=== PATIENT | male | born 1990 | race Caucasian/White ===

== ENCOUNTER 2018-03-19 22:10 | Emergency (ER) | payer BC ==
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
[2018-03-19] MEDS ORDERED: KETOROLAC 60 MG/2 ML VIAL IM ONE (22:25)
--- NOTE | 2018-03-19 23:03 | RADIOLOGY IMAGING REPORT ---
FACILITY: [facility] PATIENT NAME: Giovanni Little : 1990 MR: [id number] V: [id number] EXAM DATE: ORDERING PHYSICIAN: RIMA RAM TECHNOLOGIST: Location: [facility] Patient: Giovanni Little : 1990 Visit/Account:[id number] Date of Sevice: 03/19/2018 LEFT HAND: Indication: Injury. Technique: 2 views were obtained. Comparison: None. Findings: There is an acute fracture through the base of the second proximal phalanx, without signifi cant displacement or angulation. There is no evidence of dislocation. The skeletal structures are oth erwise intact. There is normal mineralization. Soft tissue swelling is observed around the fracture s ite. The soft tissues are otherwise unremarkable. IMPRESSION: Acute fracture of the second proximal phalanx. Report Dictated By: Deonte Cheema MD at 03/19/2018 10:58 PM Report E-Signed By: Deonte Cheema MD at 03/19/2018 11:00 PM WSN:[id number]
[2018-03-19] MEDS ORDERED: NAPR220C12 PO (23:06)
[2018-03-19 23:10] VITALS: BP 129/83
== END 2018-03-19 23:14 | disposition home or self-care (01) ==
LOC: ER 22:23
DX: S62.645A Nondisplaced fracture of proximal phalanx of left ring finger, initial encounter for closed fracture (principal)
CPT/HCPCS: 73120; 96372; 99283; J1885